=== PATIENT | female | born 1955 | race Caucasian/White ===

== ENCOUNTER 2017-02-23 19:54 | Inpatient (IN) | payer MEDICAID ==
[~2017-02-23] VITALS: Ht 172.7 cm; Wt 135.6 kg
[~2017-02-23 19:54] MED LIST: HYDR-4039 PO; PARO20TA51 PO; RIVA15TA PO
[2017-02-23 19:55] VITALS: BP_SYST 136
[2017-02-23] MEDS ORDERED: NACL 0.9% 1,000 ML IV ONE (19:57)
[2017-02-23] MEDS ORDERED: ASPIRIN 81 MG TAB.CHEW PO ONE (20:00)
[2017-02-23 20:15] LABS: BASOPHILS # (AUTO) 0.1 K/uL (0.0-0.2); BASOPHILS % (AUTO) 0.4 % (0.0-2.0); EOSINOPHILS # (AUTO) 0.3 K/uL (0.0-0.4); EOSINOPHILS % (AUTO) 2.3 % (0.0-4.0); HEMATOCRIT 42.7 % (36-48); HEMOGLOBIN 14.1 g/dL (12.0-16.0); LYMPHOCYTES # (AUTO) 3.2 K/uL (1.0-5.5); LYMPHOCYTES % (AUTO) 25.2 % (20.5-51.5); MEAN CORPUSCULAR HEMOGLOBIN 29 pg (27-31); MEAN CORPUSCULAR HGB CONC 33 % (32-36); MEAN CORPUSCULAR VOLUME 88 fL (79.0-98.0); MONOCYTES # (AUTO) 0.6 K/uL (0.0-1.0); MONOCYTES % (AUTO) 5.1 % (1.7-9.3); NEUTROPHILS # (AUTO) 8.5 K/uL (1.8-7.7); PLATELET COUNT (AUTO) 299 K/uL (130-430); RED BLOOD CELL COUNT(AUTO) 4.84 MIL/uL (4.2-6.2); RED CELL DISTRIBUTION WIDTH 13.5 % (9.0-15.0); WHITE BLOOD COUNT (AUTO) 12.7 K/uL (4.8-10.8)
[2017-02-23] MEDS ORDERED: KETOROLAC TROMETHAMINE 30 MG VIAL IVP ONE (20:15)
[2017-02-23] MEDS ORDERED: ISOS30TA6 PO ×2 (20:20→20:56)
[2017-02-23] MEDS ORDERED: ROPI0.252 PO ×2 (20:20→20:56)
[2017-02-23] MEDS ORDERED: VALS80TA2 PO (20:20)
[2017-02-23] MEDS ORDERED: ROPI0.5T PO (20:20)
[2017-02-23] MEDS ORDERED: AMIT10TA6 PO (20:21)
[2017-02-23 20:26] LABS: PROTHROMBIN TIME 10.6 SECS (9.5-12.5)
[2017-02-23] MEDS ORDERED: DILTIAZEM HCL 25 MG/5 ML VIAL IVP ONE (20:30)
[2017-02-23 20:31] LABS: CALCIUM 8.8 mg/dL (8.4-11.0); CREATININE 1.13 mg/dL (0.55-1.30); POTASSIUM 4.1 mmol/L (3.5-5.1)
[2017-02-23 20:48] LABS: ALBUMIN 3.3 g/dL (3.4-4.8); TOTAL BILIRUBIN 0.2 mg/dL (0.0-1.0); TOTAL PROTEIN, SERUM 6.7 g/dL (6.4-8.3)
[2017-02-23] MEDS ORDERED: VITA1TAB25 PO (20:56)
[2017-02-23] MEDS ORDERED: ENOXAPARIN SODIUM 120 MG/0.8 ML SYRINGE SUBCUT ONE (21:15)
[2017-02-23] MEDS ORDERED: roPINIRole HCL 0.25 MG ( REQUIP )TABLET PO PRN (21:30)
[2017-02-23] MEDS ORDERED: DILTIAZEM HCL 25 MG/5 ML VIAL IVP PRN (21:45)
[2017-02-23 21:50] VITALS: BP_SYST 102
[2017-02-23 22:00] VITALS: BP_SYST 154
[2017-02-23] MEDS ORDERED: APIXABAN 2.5 MG TABLET PO SCH (22:00)
[2017-02-23] MEDS: LR 1,000 ML IV SCH (22:17)
[2017-02-23] MEDS: DILTIAZEM HCL 60 MG TABLET PO SCH (22:34)
[2017-02-24] MEDS: DILTIAZEM HCL 60 MG TABLET PO SCH (06:00)
[2017-02-24 06:24] VITALS: BP_SYST 137
[2017-02-24 06:58] LABS: BASOPHILS # (AUTO) 0.1 K/uL (0.0-0.2); BASOPHILS % (AUTO) 0.6 % (0.0-2.0); EOSINOPHILS # (AUTO) 0.3 K/uL (0.0-0.4); EOSINOPHILS % (AUTO) 2.6 % (0.0-4.0); HEMATOCRIT 40.8 % (36-48); HEMOGLOBIN 13.5 g/dL (12.0-16.0); LYMPHOCYTES # (AUTO) 3.2 K/uL (1.0-5.5); LYMPHOCYTES % (AUTO) 32.7 % (20.5-51.5); MEAN CORPUSCULAR HEMOGLOBIN 29 pg (27-31); MEAN CORPUSCULAR HGB CONC 33 % (32-36); MEAN CORPUSCULAR VOLUME 88 fL (79.0-98.0); MONOCYTES # (AUTO) 0.6 K/uL (0.0-1.0); MONOCYTES % (AUTO) 6.2 % (1.7-9.3); NEUTROPHILS # (AUTO) 5.6 K/uL (1.8-7.7); NEUTROPHILS % (AUTO) 57.9 % (40.0-70.0); PLATELET COUNT (AUTO) 277 K/uL (130-430); RED BLOOD CELL COUNT(AUTO) 4.65 MIL/uL (4.2-6.2); RED CELL DISTRIBUTION WIDTH 13.5 % (9.0-15.0); WHITE BLOOD COUNT (AUTO) 9.8 K/uL (4.8-10.8)
[2017-02-24 07:51] LABS: CALCIUM 8.6 mg/dL (8.4-11.0); CREATININE 0.94 mg/dL (0.55-1.30); POTASSIUM 3.8 mmol/L (3.5-5.1)
[2017-02-24 07:57] VITALS: BP_SYST 124
[2017-02-24 08:14] LABS: ALBUMIN 3.3 g/dL (3.4-4.8); THYROID STIMULATING HORMONE 1.52 uIu/mL (0.36-3.74); TOTAL BILIRUBIN 0.2 mg/dL (0.0-1.0); TOTAL PROTEIN, SERUM 6.8 g/dL (6.4-8.3)
[2017-02-24] MEDS: VITAMIN B COMPLEX WITH C TAB/CAP PO SCH (08:55)
[2017-02-24] MEDS: ASPIRIN 81 MG TABLET(ECOTRIN) PO SCH (08:55)
[2017-02-24] MEDS ORDERED: VALSARTAN 80 MG TABLET (DIOVAN) PO SCH (09:00)
[2017-02-24] MEDS ORDERED: APIXABAN 2.5 MG TABLET PO SCH (09:00)
[2017-02-24] MEDS ORDERED: ISOSORBIDE MONONITRATE 30 MG TAB.ER.24H PO SCH ×2 (09:00)
[2017-02-24] MEDS ORDERED: DILTIAZEM HCL 180 MG CAP.SR.24H PO ONE (11:45)
[2017-02-24] MEDS: LR 1,000 ML IV SCH (12:09)
[2017-02-24 12:32] VITALS: BP_SYST 127
[2017-02-24 16:40] VITALS: BP_SYST 151
[2017-02-24 19:00] VITALS: BP_SYST 169
[2017-02-24 20:00] VITALS: BP_SYST 169
[2017-02-24] MEDS ORDERED: PARoxetine HCL 20 MG TABLET PO SCH (21:00)
[2017-02-24] MEDS ORDERED: AMITRIPTYLINE HCL 10 MG TABLET (ELAVIL) PO SCH (21:00)
[2017-02-24] MEDS ORDERED: ENOXAPARIN SODIUM 40 MG/0.4 ML SYRINGE SUBCUT SCH (21:00)
[2017-02-24] MEDS ORDERED: roPINIRole HCL 0.25 MG ( REQUIP )TABLET PO SCH (21:00)
[2017-02-24] MEDS: APIXABAN 2.5 MG TABLET PO SCH (21:42)
[2017-02-24] MEDS ORDERED: cloNIDine HCL 0.1 MG TABLET PO PRN (23:30)
[2017-02-24] MEDS ORDERED: DIPHENHYDRAMINE HCL 25 MG CAPSULE PO PRN (23:30)
[2017-02-25] VITALS (7 sets, daily range): BP systolic 120–172
[2017-02-25] MEDS ORDERED: DIPHENHYDRAMINE INJ 50 MG/ML VIAL IVP PRN (00:45)
[2017-02-25] MEDS: LR 1,000 ML IV SCH ×2 (02:36→05:05)
[2017-02-25] MEDS ORDERED: DILTIAZEM HCL 180 MG CAP.SR.24H PO SCH (09:00)
[2017-02-25] MEDS: APIXABAN 2.5 MG TABLET PO SCH (09:21)
[2017-02-25] MEDS: ASPIRIN 81 MG TABLET(ECOTRIN) PO SCH (09:21)
[2017-02-25] MEDS: VITAMIN B COMPLEX WITH C TAB/CAP PO SCH (09:21)
[2017-02-25] MEDS ORDERED: hydrALAZINE HCL 25 MG TABLET PO ONE (09:45)
[2017-02-25] MEDS ORDERED: hydrALAZINE HCL 25 MG TABLET PO SCH (21:00)
== END 2017-02-25 13:25 | disposition home or self-care (01) | DRG 201 ==
LOC: SED 19:54 → STU 21:14
PROVIDERS: ADMIT Internal Medicine; ATTEND Internal Medicine
DX: I48.0 Paroxysmal atrial fibrillation (principal); D68.59 Other primary thrombophilia; Z68.42 Body mass index [BMI] 45.0-49.9, adult; E66.01 Morbid (severe) obesity due to excess calories; E44.1 Mild protein-calorie malnutrition; I10 Essential (primary) hypertension; R74.8 Abnormal levels of other serum enzymes; G47.33 Obstructive sleep apnea (adult) (pediatric); M19.90 Unspecified osteoarthritis, unspecified site; R73.9 Hyperglycemia, unspecified; Z80.52 Family history of malignant neoplasm of bladder; Z90.49 Acquired absence of other specified parts of digestive tract; Z90.710 Acquired absence of both cervix and uterus; Z79.899 Other long term (current) drug therapy
CPT/HCPCS: 36415; 71010; 80053; 83036; 83735-TC; 83880; 84439; 84443-TC; 84484; 85025; 85610-TC; 85730-TC; 93005; 96372; 96374; 96375; 99285; J1200; J1650; J1885; J3490; J7030; J7120; Q0163

== ENCOUNTER 2017-08-08 16:28 | Emergency (ER) | payer MEDICAID ==
[~2017-08-08] VITALS: Ht 172.7 cm; Wt 131.5 kg
[2017-08-08 16:28] VITALS: BP_SYST 146
[~2017-08-08 16:28] MED LIST changes: +AMIT10TA6 PO; +ISOS30TA6 PO; -RIVA15TA PO; +ROPI0.252 PO; +ROPI0.5T PO; +VALS80TA2 PO; +VITA1TAB25 PO
--- NOTE | 2017-08-08 16:30 | NUR ---
Pt brought to bed 3
--- NOTE | 2017-08-08 16:43 | NUR ---
Pt complains of dizziness and generalized weakness for the past week, pt states has difficulty catching her breath. Pt denies chest pain, n/v or fever. Pt states feels "like phelgm is stuck in her lungs". Pt has 96% on room air, is CTA in bilateral lungs. Pt drove self to ER and no noted difficulty while ambulating into the ER. No other injuries/complaints per pt or noted.
--- NOTE | 2017-08-08 16:45 | NUR ---
ER at bedside examining patient.
--- NOTE | 2017-08-08 17:30 | NUR ---
Pt is resting in bed comfortably with no noted distress or discomfort.
[2017-08-08 17:36] LABS: BASOPHILS # (AUTO) 0.1 K/uL (0.0-0.2); BASOPHILS % (AUTO) 0.5 % (0.0-2.0); EOSINOPHILS # (AUTO) 0.2 K/uL (0.0-0.4); EOSINOPHILS % (AUTO) 1.8 % (0.0-4.0); HEMATOCRIT 41.4 % (36-48); HEMOGLOBIN 13.5 g/dL (12.0-16.0); LYMPHOCYTES # (AUTO) 3.1 K/uL (1.0-5.5); LYMPHOCYTES % (AUTO) 23.3 % (20.5-51.5); MEAN CORPUSCULAR HEMOGLOBIN 29 pg (27-31); MEAN CORPUSCULAR HGB CONC 33 % (32-36); MEAN CORPUSCULAR VOLUME 89 fL (79.0-98.0); MONOCYTES # (AUTO) 0.7 K/uL (0.0-1.0); MONOCYTES % (AUTO) 5.1 % (1.7-9.3); NEUTROPHILS # (AUTO) 9.3 K/uL (1.8-7.7); NEUTROPHILS % (AUTO) 69.3 % (40.0-70.0); PLATELET COUNT (AUTO) 325 K/uL (130-430); RED BLOOD CELL COUNT(AUTO) 4.66 MIL/uL (4.2-6.2); RED CELL DISTRIBUTION WIDTH 13.6 % (9.0-15.0); WHITE BLOOD COUNT (AUTO) 13.4 K/uL (4.8-10.8)
[2017-08-08 18:10] LABS: ALBUMIN 3.2 g/dL (3.4-4.8); CALCIUM 9.2 mg/dL (8.4-11.0); CREATININE 0.71 mg/dL (0.55-1.30); POTASSIUM 4.5 mmol/L (3.5-5.1); TOTAL BILIRUBIN 0.3 mg/dL (0.0-1.0)
--- NOTE | 2017-08-08 18:30 | NUR ---
Pt has no complaints of pain but is cold and asked for a blanket, which was given
[2017-08-08 19:30] VITALS: BP_SYST 111
--- NOTE | 2017-08-08 19:31 | NUR ---
Patient given written and verbal discharge instructions and verbalizes understanding. ER MD discussed with patient the results and treatment provided. Patient in stable condition. ID arm band removed. Patient educated on pain management and to follow up with PMD. Pain Scale 0/10. Opportunity for questions provided and answered.
== END 2017-08-08 19:30 | disposition home or self-care (01) ==
LOC: SED 16:28
DX: J40 Bronchitis, not specified as acute or chronic (principal); K21.9 Gastro-esophageal reflux disease without esophagitis; I10 Essential (primary) hypertension; I48.91 Unspecified atrial fibrillation; E66.01 Morbid (severe) obesity due to excess calories; Z68.41 Body mass index [BMI] 40.0-44.9, adult; Z90.49 Acquired absence of other specified parts of digestive tract; Z90.89 Acquired absence of other organs; Z79.899 Other long term (current) drug therapy; Z88.2 Allergy status to sulfonamides; Z91.040 Latex allergy status
CPT/HCPCS: 36415; 71010; 80053; 83690-TC; 83880; 84484; 85025; 93005; 99285

== ENCOUNTER 2018-01-10 04:24 | Emergency (ER) | payer OTHER, MEDICAID ==
[~2018-01-10] VITALS: Ht 172.7 cm; Wt 136.1 kg
[~2018-01-10 04:24] MED LIST changes: +ALBMDI INH; +FLUT16SP16 NS; +FLUT1DIS INH; +LEVO500T20 PO; +METH4TAB3 PO; -ROPI0.5T PO
[2018-01-10 04:34] VITALS: BP_SYST 139
[2018-01-10] MEDS ORDERED: BUPIVACAINE /PF 0.25% 30 ML VIAL INJ ONE (05:00)
[2018-01-10] MEDS ORDERED: LIDOCAINE 1% 10 MG/ML, 20 ML MDV INJ ONE (05:00)
[2018-01-10 05:28] VITALS: BP_SYST 133
[2018-01-13] MEDS ORDERED: HYDR-1189 PO ×2 (18:53)
[2018-01-13] MEDS ORDERED: ALPR0.5T96 PO (18:53)
[2018-01-13] MEDS ORDERED: DILT180C54 PO (18:53)
== END 2018-01-10 05:28 | disposition home or self-care (01) ==
LOC: SED 04:24
DX: G89.29 Other chronic pain (principal); M25.511 Pain in right shoulder; J44.9 Chronic obstructive pulmonary disease, unspecified; K21.9 Gastro-esophageal reflux disease without esophagitis; I48.91 Unspecified atrial fibrillation; I10 Essential (primary) hypertension; F32.9 Major depressive disorder, single episode, unspecified; Z88.2 Allergy status to sulfonamides; Z91.040 Latex allergy status; Z79.899 Other long term (current) drug therapy
CPT/HCPCS: 20552; 99284; J2001; J3490

== ENCOUNTER 2019-04-19 10:21 | Emergency (ER) | payer MEDICAID, OTHER ==
[~2019-04-19] VITALS: Ht 172.7 cm; Wt 131.1 kg
[~2019-04-19 10:21] MED LIST changes: +ALPR0.5T PO; -AMIT10TA6 PO; +DILT180C54 PO; +HYDR-1189 PO; -LEVO500T20 PO; -METH4TAB3 PO; +PARO-63 PO; -PARO20TA51 PO; -ROPI0.252 PO
[2019-04-19 10:24] VITALS: BP_SYST 144
[2019-04-19] MEDS ORDERED: NA PHOS,M-B/NA PHOS,DI-BA 118 ML (FLEET ENEMA) RC ONE (10:45)
[2019-04-19 11:19] VITALS: BP_SYST 135
== END 2019-04-19 11:21 | disposition home or self-care (01) ==
LOC: SED 10:21
DX: K59.00 Constipation, unspecified (principal); K62.89 Other specified diseases of anus and rectum; J45.909 Unspecified asthma, uncomplicated; Z79.899 Other long term (current) drug therapy; Z88.2 Allergy status to sulfonamides; Z91.040 Latex allergy status
CPT/HCPCS: 99283; 99284

== ENCOUNTER 2019-04-24 05:34 | Emergency (ER) | payer OTHER ==
[~2019-04-24] VITALS: Ht 172.7 cm; Wt 131.1 kg
[2019-04-24 05:34] VITALS: BP_SYST 137
--- NOTE | 2019-04-24 05:35 | NUR ---
Placed in room 7. Placed on laboratory monitor, blood pressure machine and pulse oximeter. To gown for exam. Side rails up.
--- NOTE | 2019-04-24 05:40 | NUR ---
Pt brought into ED by friend w/ c/o of active bleed from Sx site. Pt woke up this moring around 0400 and noticed bleeding from her hernia site repair. She had Sx one week ago, and has had not any complications after Sx but noticed the bleeding today. Pt has Hx of Dm, HTN, and A-fib, and ventral hernia. No other Sx noted. Pt not c/o of any pain at this time, no N/V, no dizziness, no fever, chills noted. VSS. Will continue to monitor.
--- NOTE | 2019-04-24 05:45 | NUR ---
ER Dr. Nathan at bedside examining patient.
--- NOTE | 2019-04-24 05:50 | NUR ---
# 20 gauge angiocath placed to RT AC. Use of asceptic technique. Opsite placed over site. Blood return noted. Blood for lab drawn from site. Flushed with 10 cc of normal saline. No evidence of infiltration noted. Patient tolerated well.
[2019-04-24] MEDS ORDERED: NACL 0.9% 1,000 ML IV ONE (06:00)
[2019-04-24] MEDS ORDERED: PIPERACILLIN/TAZO 3.375 GM in NS 50 ML IV ONE (06:00)
[2019-04-24] MEDS ORDERED: APIX5TAB PO (06:03)
[2019-04-24] MEDS ORDERED: PIPERACILLIN/TAZOBACTAM 3.375 GM/VIAL (ZOSYN) IV ONE (06:20)
[2019-04-24 06:21] LABS: BASOPHILS # (AUTO) 0.1 K/uL (0.0-0.2); BASOPHILS % (AUTO) 0.8 % (0.0-2.0); EOSINOPHILS # (AUTO) 0.4 K/uL (0.0-0.4); EOSINOPHILS % (AUTO) 3.2 % (0.0-4.0); HEMATOCRIT 41.8 % (36-48); HEMOGLOBIN 13.8 g/dL (12.0-16.0); LYMPHOCYTES # (AUTO) 2.9 K/uL (1.0-5.5); LYMPHOCYTES % (AUTO) 22.5 % (20.5-51.5); MEAN CORPUSCULAR HEMOGLOBIN 30 pg (27-31); MEAN CORPUSCULAR HGB CONC 33 % (32-36); MEAN CORPUSCULAR VOLUME 92 fL (79.0-98.0); MONOCYTES # (AUTO) 0.8 K/uL (0.0-1.0); MONOCYTES % (AUTO) 6.1 % (1.7-9.3); NEUTROPHILS # (AUTO) 8.6 K/uL (1.8-7.7); NEUTROPHILS % (AUTO) 67.4 % (40.0-70.0); PLATELET COUNT (AUTO) 312 K/uL (130-430); RED BLOOD CELL COUNT(AUTO) 4.57 MIL/uL (4.2-6.2); RED CELL DISTRIBUTION WIDTH 14.2 % (9.0-15.0); WHITE BLOOD COUNT (AUTO) 12.7 K/uL (4.8-10.8)
[2019-04-24] MEDS ORDERED: TOPXL100 PO (06:32)
[2019-04-24] MEDS ORDERED: FURO-150 PO (06:32)
[2019-04-24 06:34] LABS: CALCIUM 9.1 mg/dL (8.4-11.0); CREATININE 0.89 mg/dL (0.55-1.30); POTASSIUM 3.9 mmol/L (3.5-5.1)
[2019-04-24] MEDS ORDERED: LOSARTAN PO (06:34)
--- NOTE | 2019-04-24 06:35 | NUR ---
Medication reconciliation completed with information provided by patient. Any prior medication reconciliation on file was reviewed and corrected.
[2019-04-24 06:39] LABS: ALBUMIN 3.3 g/dL (3.4-4.8); TOTAL BILIRUBIN 0.9 mg/dL (0.0-1.0)
[2019-04-24 06:43] LABS: BILIRUBIN,URINE NEGATIVE (NEGATIVE); BLOOD, URINE 2+ (NEGATIVE); CLARITY/URINE CLEAR (CLEAR); COLOR,URINE YELLOW (YELLOW); GLUCOSE,URINE NEGATIVE (NEGATIVE); KETONES,URINE NEGATIVE (NEGATIVE); LEUKOCYTE ESTERASE ,URINE NEGATIVE (NEGATIVE); NITRITE, URINE NEGATIVE (NEGATIVE); PH,URINE 5.5 (5.0-8.0); PROTEIN URINE 1+ (NEGATIVE); UROBILINOGEN,URINE 0.2 (0.2-1.0)
[2019-04-24 06:48] LABS: INR 1.1 (0.8-1.2); PROTHROMBIN TIME 11.1 SECS (9.5-12.5)
--- NOTE | 2019-04-24 07:00 | NUR ---
Pt w/ radiology for CT scan.
--- NOTE | 2019-04-24 07:05 | NUR ---
Report to oncoming RN via SBAR approach.
[2019-04-24] MEDS ORDERED: IOHEXOL 100 ML IV ONE (07:17)
--- NOTE | 2019-04-24 07:25 | NUR ---
Returned from radiology, back to [place] [facility] [facility].
[2019-04-24 07:27] LABS: BACTERIA,URINE FEW /HPF (None Seen); WBC,URINE 0-3 /HPF (0-3)
--- NOTE | 2019-04-24 09:59 | NUR ---
Patient given written and verbal discharge instructions and verbalizes understanding. ER MD discussed with patient the results and treatment provided. Patient in stable condition. ID arm band removed. IV catheter removed intact and dressing applied, no active bleeding. Patient provided a copy of labs and CD with imaging. Patient educated on pain management and to follow up with PMD. Pain Scale 0/10. Opportunity for questions provided and answered. Medication side effect fact sheet provided.
[2019-04-24 10:00] VITALS: BP_SYST 118
== END 2019-04-24 10:00 | disposition home or self-care (01) ==
LOC: SED 05:34
DX: K91.840 Postprocedural hemorrhage of a digestive system organ or structure following a digestive system procedure (principal); I48.91 Unspecified atrial fibrillation; K21.9 Gastro-esophageal reflux disease without esophagitis; I10 Essential (primary) hypertension; J44.9 Chronic obstructive pulmonary disease, unspecified; F32.9 Major depressive disorder, single episode, unspecified; F41.9 Anxiety disorder, unspecified; Z88.2 Allergy status to sulfonamides; Z91.040 Latex allergy status; Z79.899 Other long term (current) drug therapy
CPT/HCPCS: 36415; 71045; 74177; 80053; 81000; 83605; 84484; 85025; 85610; 85730; 87040; 87086; 93005; 96365; 99284; J2543; J7030; Q9967

== ENCOUNTER 2020-02-22 13:37 | Emergency (ER) | payer OTHER ==
[~2020-02-22] VITALS: Ht 157.5 cm; Wt 136.1 kg
[~2020-02-22 13:37] MED LIST changes: -ALPR0.5T PO; +APIX5TAB PO; +FURO-150 PO; -HYDR-4039 PO; +LOSARTAN PO; +TOPXL100 PO; -VALS80TA2 PO
[2020-02-22 13:38] VITALS: BP_SYST 154
--- NOTE | 2020-02-22 13:38 | NUR ---
Placed in room 8. Placed on phototypesetting equipment monitor, blood pressure machine and pulse oximeter. To gown for exam. Side rails up.
--- NOTE | 2020-02-22 13:50 | NUR ---
Patient is A/O x4. She is complaining of right sided pain under the right breast. She states it has been getting progressively worse since having a chiropractor adjustment 3 days ago, she is also complaining of SOB and is diaphoretic. Addendum: 02/22/20 at 1402 by [email or web address] The pain is under left breast, not right breast.
--- NOTE | 2020-02-22 14:00 | NUR ---
ER Dr. Patel at bedside examining patient.
[2020-02-22 14:31] LABS: BASOPHILS # (AUTO) 0.1 K/uL (0.0-0.2); BASOPHILS % (AUTO) 0.5 % (0.0-2.0); EOSINOPHILS # (AUTO) 0.3 K/uL (0.0-0.4); HEMATOCRIT 46.9 % (36-48); HEMOGLOBIN 15.3 g/dL (12.0-16.0); LYMPHOCYTES # (AUTO) 3.6 K/uL (1.0-5.5); LYMPHOCYTES % (AUTO) 25.3 % (20.5-51.5); MEAN CORPUSCULAR HEMOGLOBIN 29 pg (27-31); MEAN CORPUSCULAR HGB CONC 33 % (32-36); MEAN CORPUSCULAR VOLUME 90 fL (79.0-98.0); MONOCYTES % (AUTO) 7.3 % (1.7-9.3); NEUTROPHILS # (AUTO) 9.2 K/uL (1.8-7.7); NEUTROPHILS % (AUTO) 64.9 % (40.0-70.0); PLATELET COUNT (AUTO) 315 K/uL (130-430); RED BLOOD CELL COUNT(AUTO) 5.23 MIL/uL (4.2-6.2); RED CELL DISTRIBUTION WIDTH 14.7 % (9.0-15.0); WHITE BLOOD COUNT (AUTO) 14.2 K/uL (4.8-10.8)
[2020-02-22 14:35] LABS: INR 1.1 (0.8-1.2); PROTHROMBIN TIME 10.9 SECS (9.5-12.5)
[2020-02-22 14:47] LABS: CALCIUM 9.6 mg/dL (8.4-11.0); CREATININE 0.75 mg/dL (0.55-1.30); POTASSIUM 4.2 mmol/L (3.5-5.1)
[2020-02-22 14:52] LABS: ALBUMIN 3.7 g/dL (3.4-4.8); TOTAL BILIRUBIN 0.5 mg/dL (0.0-1.0)
[2020-02-22] MEDS ORDERED: MORPHINE 4 MG/ML INJ. SYRINGE IVP ONE (15:15)
[2020-02-22] MEDS ORDERED: DIPHENHYDRAMINE INJ 50 MG/ML VIAL IVP ONE (15:15)
[2020-02-22 15:16] LABS: BILIRUBIN,URINE NEGATIVE (NEGATIVE); BLOOD, URINE NEGATIVE (NEGATIVE); CLARITY/URINE CLEAR (CLEAR); COLOR,URINE YELLOW (YELLOW); GLUCOSE,URINE NEGATIVE (NEGATIVE); KETONES,URINE NEGATIVE (NEGATIVE); LEUKOCYTE ESTERASE ,URINE NEGATIVE (NEGATIVE); NITRITE, URINE NEGATIVE (NEGATIVE); PROTEIN URINE 1+ (NEGATIVE); UROBILINOGEN,URINE 0.2 (0.2-1.0)
[2020-02-22 15:20] LABS: BACTERIA,URINE RARE /HPF (None Seen); RBC,URINE 0-3 /HPF (0-3); WBC,URINE 0-3 /HPF (0-3)
[2020-02-22 16:30] VITALS: BP_SYST 148
--- NOTE | 2020-02-22 16:30 | NUR ---
Patient given written and verbal discharge instructions and verbalizes understanding. ER MD discussed with patient the results and treatment provided. Patient in stable condition. ID arm band removed. IV catheter removed intact and dressing applied, no active bleeding. Rx of tramadol, robaxin given. Patient educated on pain management and to follow up with PMD. Pain Scale 0/10. Opportunity for questions provided and answered. Medication side effect fact sheet provided.
== END 2020-02-22 16:30 | disposition home or self-care (01) ==
LOC: SED 13:37
DX: M62.838 Other muscle spasm (principal); R07.89 Other chest pain; I11.0 Hypertensive heart disease with heart failure; I50.9 Heart failure, unspecified; K21.9 Gastro-esophageal reflux disease without esophagitis; J44.9 Chronic obstructive pulmonary disease, unspecified; Z79.899 Other long term (current) drug therapy; Z88.2 Allergy status to sulfonamides; Z91.040 Latex allergy status
CPT/HCPCS: 36415; 71045; 71100; 76642; 80053; 81000; 83605; 83880; 84484; 85025; 85610; 87040; 93005; 96374; 96375; 99285; J1200; J2270

== ENCOUNTER 2022-02-12 04:33 | Emergency (ER) | payer OTHER ==
[~2022-02-12] VITALS: Ht 172.7 cm; Wt 136.1 kg
[~2022-02-12 04:33] MED LIST changes: -HYDR-1189 PO; +HYDR-3919 PO; -ISOS30TA6 PO; +ISOS30TA85 PO
[2022-02-12 04:40] VITALS: BP_SYST 130
[2022-02-12] MEDS ORDERED: KETOROLAC TROMETHAMINE 30 MG VIAL IVP ONE (05:30)
[2022-02-12 06:43] LABS: BASOPHILS # (AUTO) 0.1 K/uL (0.0-0.2); BASOPHILS % (AUTO) 0.9 % (0.0-2.0); EOSINOPHILS # (AUTO) 0.6 K/uL (0.0-0.4); EOSINOPHILS % (AUTO) 5.5 % (0.0-4.0); HEMATOCRIT 44.9 % (36-48); HEMOGLOBIN 15.3 g/dL (12.0-16.0); LYMPHOCYTES # (AUTO) 2.4 K/uL (1.0-5.5); MEAN CORPUSCULAR HEMOGLOBIN 30 pg (27-31); MEAN CORPUSCULAR HGB CONC 34 % (32-36); MEAN CORPUSCULAR VOLUME 88 fL (79.0-98.0); MONOCYTES # (AUTO) 0.8 K/uL (0.0-1.0); MONOCYTES % (AUTO) 7.8 % (1.7-9.3); NEUTROPHILS # (AUTO) 6.6 K/uL (1.8-7.7); NEUTROPHILS % (AUTO) 62.8 % (40.0-70.0); PLATELET COUNT (AUTO) 243 K/uL (130-430); RED CELL DISTRIBUTION WIDTH 14.4 % (9.0-15.0); WHITE BLOOD COUNT (AUTO) 10.5 K/uL (4.8-10.8)
[2022-02-12 07:10] LABS: CALCIUM 8.7 mg/dL (8.4-11.0); CREATININE 0.91 mg/dL (0.55-1.30); POTASSIUM 3.3 mmol/L (3.5-5.1)
[2022-02-12 07:15] LABS: ALBUMIN 3.4 g/dL (3.4-4.8); TOTAL BILIRUBIN 0.7 mg/dL (0.0-1.0)
[2022-02-12 07:22] LABS: BILIRUBIN,URINE NEGATIVE (NEGATIVE); BLOOD, URINE NEGATIVE (NEGATIVE); CLARITY/URINE CLEAR (CLEAR); COLOR,URINE YELLOW (YELLOW); GLUCOSE,URINE NEGATIVE (NEGATIVE); KETONES,URINE NEGATIVE (NEGATIVE); LEUKOCYTE ESTERASE ,URINE NEGATIVE (NEGATIVE); NITRITE, URINE NEGATIVE (NEGATIVE); PROTEIN URINE 2+ (NEGATIVE); UROBILINOGEN,URINE 0.2 (0.2-1.0)
[2022-02-12 07:46] LABS: BACTERIA,URINE None Seen /HPF (None Seen); CALCIUM OXALATE CRYSTALS,UR 0-10 /HPF (None Seen); RBC,URINE 0-3 /HPF (0-3); WBC,URINE 0-3 /HPF (0-3)
[2022-02-12 07:48] LABS: HYALINE CASTS, URINE 0-10 /LPF (None Seen)
[2022-02-12] MEDS ORDERED: ONDANSETRON HCL 4 MG/2 ML VIAL IVP ONE (08:15)
[2022-02-12] MEDS ORDERED: MORPHINE 4 MG INJ. 4 MG/ML VIAL IVP ONE (08:15)
[2022-02-12 08:56] VITALS: BP_SYST 147
[2022-02-12] MEDS ORDERED: IBUP-1969 PO (09:08)
[2022-02-12] MEDS ORDERED: HYDR-3917 PO (09:18)
== END 2022-02-12 10:30 | disposition home or self-care (01) ==
LOC: SED 04:33
DX: K91.872 Postprocedural seroma of a digestive system organ or structure following a digestive system procedure (principal); I11.0 Hypertensive heart disease with heart failure; I50.9 Heart failure, unspecified; J45.909 Unspecified asthma, uncomplicated; Z88.2 Allergy status to sulfonamides; Z91.040 Latex allergy status; Z79.899 Other long term (current) drug therapy
CPT/HCPCS: 36415; 74176; 76376; 80053; 81000; 81003; 85025; 96374; 96375; 99284; J1885; J2270; J2405

== ENCOUNTER 2022-07-13 16:17 | Emergency (ER) | payer OTHER ==
[~2022-07-13] VITALS: Ht 172.7 cm; Wt 131.5 kg
[~2022-07-13 16:17] MED LIST changes: +HYDR-3917 PO; +IBUP-1969 PO
[2022-07-13 16:27] VITALS: BP_SYST 127
[2022-07-13 17:33] LABS: BASOPHILS # (AUTO) 0.1 K/uL (0.0-0.2); EOSINOPHILS # (AUTO) 0.3 K/uL (0.0-0.4); EOSINOPHILS % (AUTO) 2.9 % (0.0-4.0); HEMATOCRIT 41.9 % (36-48); HEMOGLOBIN 14.2 g/dL (12.0-16.0); LYMPHOCYTES # (AUTO) 2.5 K/uL (1.0-5.5); LYMPHOCYTES % (AUTO) 24.8 % (20.5-51.5); MEAN CORPUSCULAR HEMOGLOBIN 31 pg (27-31); MEAN CORPUSCULAR HGB CONC 34 % (32-36); MEAN CORPUSCULAR VOLUME 90 fL (79.0-98.0); MONOCYTES # (AUTO) 0.7 K/uL (0.0-1.0); MONOCYTES % (AUTO) 7.4 % (1.7-9.3); NEUTROPHILS # (AUTO) 6.4 K/uL (1.8-7.7); NEUTROPHILS % (AUTO) 63.9 % (40.0-70.0); PLATELET COUNT (AUTO) 217 K/uL (130-430); RED BLOOD CELL COUNT(AUTO) 4.65 MIL/uL (4.2-6.2); RED CELL DISTRIBUTION WIDTH 14.3 % (9.0-15.0)
[2022-07-13 18:29] LABS: CALCIUM 9.1 mg/dL (8.4-11.0); CREATININE 0.81 mg/dL (0.55-1.30); POTASSIUM 4.1 mmol/L (3.5-5.1)
[2022-07-13 18:33] LABS: ALBUMIN 3.5 g/dL (3.4-4.8); TOTAL BILIRUBIN 0.2 mg/dL (0.0-1.0)
--- NOTE | 2022-07-13 18:38 | NUR ---
Placed in room 2 . Placed on cardiac monitor technician, blood pressure machine and pulse oximeter. To gown for exam. Side rails up. Report given to MIGUEL FRANCOIS.
[2022-07-13 18:44] LABS: BILIRUBIN,URINE NEGATIVE (NEGATIVE); BLOOD, URINE NEGATIVE (NEGATIVE); CLARITY/URINE CLEAR (CLEAR); COLOR,URINE YELLOW (YELLOW); GLUCOSE,URINE NEGATIVE (NEGATIVE); KETONES,URINE NEGATIVE (NEGATIVE); LEUKOCYTE ESTERASE ,URINE NEGATIVE (NEGATIVE); NITRITE, URINE NEGATIVE (NEGATIVE); PROTEIN URINE NEGATIVE (NEGATIVE); UROBILINOGEN,URINE 0.2 (0.2-1.0)
[2022-07-13] MEDS ORDERED: DICYCLOMINE HCL 10 MG CAPSULE PO ONE (19:00)
[2022-07-13] MEDS ORDERED: KETOROLAC TROMETHAMINE 30 MG VIAL IM ONE (19:00)
[2022-07-13] MEDS ORDERED: DICYCLOMINE HCL 10 MG/5 ML SOLUTION ONE (19:19)
[2022-07-13] MEDS ORDERED: DICYCLOMINE HCL 10 MG/5 ML SOLUTION PO ONE (19:30)
[2022-07-13] MEDS ORDERED: LOPE2CAP PO (19:56)
[2022-07-13] MEDS ORDERED: DICY10CA13 PO (19:56)
[2022-07-13] MEDS ORDERED: ACET-2634 PO (19:56)
[2022-07-13 20:03] VITALS: BP_SYST 127
--- NOTE | 2022-07-13 20:03 | NUR ---
Patient given written and verbal discharge instructions and verbalizes understanding. ER MD discussed with patient the results and treatment provided. Patient in stable condition. ID arm band removed. Rx of given. Patient educated on pain management and to follow up with PMD. Pain Scale 0/10. Opportunity for questions provided and answered. Medication side effect fact sheet provided.
== END 2022-07-13 20:03 | disposition home or self-care (01) ==
LOC: SED 16:17
DX: A08.4 Viral intestinal infection, unspecified (principal); R10.84 Generalized abdominal pain; E27.9 Disorder of adrenal gland, unspecified; K21.9 Gastro-esophageal reflux disease without esophagitis; J44.9 Chronic obstructive pulmonary disease, unspecified; I10 Essential (primary) hypertension; Z88.2 Allergy status to sulfonamides; Z91.040 Latex allergy status; Z79.899 Other long term (current) drug therapy
CPT/HCPCS: 99284; 74176; 80053; 83690; 85025; 87040; 36415; 76376; 96372; 83605; 81003; J1885

== ENCOUNTER 2022-11-28 08:03 | Day surgery (SDC) | payer OTHER ==
[~2022-11-28] VITALS: Ht 172.7 cm; Wt 130.9 kg
[~2022-11-28 08:03] MED LIST changes: +ACET-2634 PO; +DICY10CA13 PO; +LOPE2CAP PO; +PARO-147 PO; -PARO-63 PO
[2022-11-28] MEDS ORDERED: MIDAZOLAM HCL 5 MG/5 ML VIAL ONE ×2 (08:23→10:05)
[2022-11-28] MEDS ORDERED: MEPERIDINE 50 MG/ML VIAL ONE (08:23)
[2022-11-28 16:41] VITALS: BP_SYST 129
== END 2022-11-28 11:50 | disposition home or self-care (01) ==
LOC: SDS 08:03 → SMU 08:04 → SDS 11:50
PROVIDERS: ATTEND Internal Medicine Gastroenterology
DX: Z12.11 Encounter for screening for malignant neoplasm of colon (principal); D12.3 Benign neoplasm of transverse colon; K29.50 Unspecified chronic gastritis without bleeding; K21.9 Gastro-esophageal reflux disease without esophagitis; J44.9 Chronic obstructive pulmonary disease, unspecified; I48.91 Unspecified atrial fibrillation; I11.0 Hypertensive heart disease with heart failure; I50.9 Heart failure, unspecified; F32.A Depression, unspecified; K58.9 Irritable bowel syndrome, unspecified; Z90.710 Acquired absence of both cervix and uterus; Z90.89 Acquired absence of other organs; Z79.899 Other long term (current) drug therapy; Z79.01 Long term (current) use of anticoagulants; Z20.822 Contact with and (suspected) exposure to COVID-19
CPT/HCPCS: 45385; 43239; 87426; 87081; 36415; 88305; 88312; 88313; 99152; 99153; G0378; J2250; J2175

== ENCOUNTER 2023-03-07 11:27 | Emergency (ER) | payer OTHER ==
[~2023-03-07] VITALS: Ht 172.7 cm; Wt 136.1 kg
[2023-03-07 11:38] VITALS: BP_SYST 140
[2023-03-07] MEDS ORDERED: KETOROLAC TROMETHAMINE 60 MG/2 ML VIAL IM ONE (12:30)
[2023-03-07] MEDS ORDERED: HYDROcodone/ACETAMIN 10-325 MG TAB PO ONE (12:30)
[2023-03-07 12:59] LABS: BASOPHILS # (AUTO) 0.1 K/uL (0.0-0.2); BASOPHILS % (AUTO) 0.7 % (0.0-2.0); EOSINOPHILS # (AUTO) 0.2 K/uL (0.0-0.4); EOSINOPHILS % (AUTO) 2.3 % (0.0-4.0); HEMATOCRIT 40.1 % (36-48); HEMOGLOBIN 13.5 g/dL (12.0-16.0); LYMPHOCYTES # (AUTO) 1.9 K/uL (1.0-5.5); LYMPHOCYTES % (AUTO) 22.7 % (20.5-51.5); MEAN CORPUSCULAR HEMOGLOBIN 30 pg (27-31); MEAN CORPUSCULAR HGB CONC 34 % (32-36); MEAN CORPUSCULAR VOLUME 89 fL (79.0-98.0); MONOCYTES # (AUTO) 0.6 K/uL (0.0-1.0); MONOCYTES % (AUTO) 6.6 % (1.7-9.3); NEUTROPHILS # (AUTO) 5.7 K/uL (1.8-7.7); NEUTROPHILS % (AUTO) 67.7 % (40.0-70.0); PLATELET COUNT (AUTO) 219 K/uL (130-430); RED BLOOD CELL COUNT(AUTO) 4.52 MIL/uL (4.2-6.2); RED CELL DISTRIBUTION WIDTH 14.9 % (9.0-15.0); WHITE BLOOD COUNT (AUTO) 8.5 K/uL (4.8-10.8)
[2023-03-07 13:11] LABS: CALCIUM 8.5 mg/dL (8.4-11.0); CREATININE 0.76 mg/dL (0.55-1.30)
[2023-03-07 13:15] LABS: ALBUMIN 3.4 g/dL (3.4-4.8); TOTAL BILIRUBIN 0.4 mg/dL (0.0-1.0)
[2023-03-07] MEDS ORDERED: DICY10CA13 PO (15:56)
[2023-03-07 16:11] VITALS: BP_SYST 140
== END 2023-03-07 16:10 | disposition home or self-care (01) ==
LOC: SED 11:27
DX: R10.32 Left lower quadrant pain (principal); K59.00 Constipation, unspecified; J44.9 Chronic obstructive pulmonary disease, unspecified; K21.9 Gastro-esophageal reflux disease without esophagitis; I11.0 Hypertensive heart disease with heart failure; I50.9 Heart failure, unspecified; Z91.040 Latex allergy status; Z88.2 Allergy status to sulfonamides; Z79.899 Other long term (current) drug therapy
CPT/HCPCS: 99284; 74176; 80053; 83690; 85025; 36415; 76376; 96372; J1885

== ENCOUNTER 2024-06-30 12:25 | Emergency (ER) | payer OTHER ==
[~2024-06-30 12:25] MED LIST changes: +DICY-14 PO; -DICY10CA13 PO
[2024-06-30 12:46] VITALS: BP_SYST 135; PULSE 77; RESP 18; TEMP 97.5; O2SAT 96
[2024-06-30 13:46] LABS: BILIRUBIN,URINE NEGATIVE (NEGATIVE); BLOOD, URINE 3+ (NEGATIVE); CLARITY/URINE TURBID (CLEAR); COLOR,URINE BROWN (YELLOW); GLUCOSE,URINE NEGATIVE (NEGATIVE); KETONES,URINE NEGATIVE (NEGATIVE); LEUKOCYTE ESTERASE ,URINE NEGATIVE (NEGATIVE); NITRITE, URINE NEGATIVE (NEGATIVE); PROTEIN URINE 1+ (NEGATIVE); UROBILINOGEN,URINE 0.2 (0.2-1.0)
[2024-06-30 14:07] LABS: BACTERIA,URINE FEW /HPF (None Seen); RBC,URINE >100 /HPF (0-3); YEAST,URINE Few /HPF (None Seen)
[2024-06-30 14:28] LABS: BASOPHILS # (AUTO) 0.1 K/uL (0.0-0.2); BASOPHILS % (AUTO) 0.6 % (0.0-2.0); EOSINOPHILS # (AUTO) 0.2 K/uL (0.0-0.4); EOSINOPHILS % (AUTO) 1.6 % (0.0-4.0); HEMATOCRIT 44.8 % (36-48); HEMOGLOBIN 14.9 g/dL (12.0-16.0); LYMPHOCYTES # (AUTO) 2.6 K/uL (1.0-5.5); LYMPHOCYTES % (AUTO) 24.7 % (20.5-51.5); MEAN CORPUSCULAR HEMOGLOBIN 31 pg (27-31); MEAN CORPUSCULAR HGB CONC 33 % (32-36); MEAN CORPUSCULAR VOLUME 92 fL (79.0-98.0); MONOCYTES # (AUTO) 0.8 K/uL (0.0-1.0); MONOCYTES % (AUTO) 7.4 % (1.7-9.3); NEUTROPHILS % (AUTO) 65.7 % (40.0-70.0); PLATELET COUNT (AUTO) 238 K/uL (130-430); RED BLOOD CELL COUNT(AUTO) 4.87 MIL/uL (4.2-6.2); RED CELL DISTRIBUTION WIDTH 14.7 % (9.0-15.0); WHITE BLOOD COUNT (AUTO) 10.7 K/uL (4.8-10.8)
[2024-06-30 14:45] LABS: INR 1.1 (0.8-1.2); PROTHROMBIN TIME 11.6 SECS (9.5-12.5)
[2024-06-30 15:20] LABS: ALBUMIN 3.6 g/dL (3.4-4.8); BILIRUBIN,DIRECT 0.2 mg/dL (0.0-0.3); CALCIUM 9.6 mg/dL (8.4-11.0); CREATININE 0.67 mg/dL (0.55-1.30); POTASSIUM 3.4 mmol/L (3.5-5.1); TOTAL BILIRUBIN 0.6 mg/dL (0.0-1.0); TOTAL PROTEIN, SERUM 7.1 g/dL (6.4-8.3)
[2024-06-30] MEDS ORDERED: IBUP-1969 PO (16:09)
[2024-06-30] MEDS ORDERED: HYDR-3927 PO (16:09)
[2024-06-30] MEDS ORDERED: NITR-85 PO (16:09)
[2024-06-30 16:25] VITALS: BP_SYST 122; PULSE 80; RESP 16; TEMP 98; O2SAT 95
[2024-06-30] MEDS: KETOROLAC TROMETHAMINE 60 MG/2 ML VIAL IM ONE (16:28)
== END 2024-06-30 16:25 | disposition home or self-care (01) ==
LOC: SED 12:25
DX: N23 Unspecified renal colic (principal); N93.8 Other specified abnormal uterine and vaginal bleeding; I48.91 Unspecified atrial fibrillation; I11.0 Hypertensive heart disease with heart failure; I50.9 Heart failure, unspecified; F41.9 Anxiety disorder, unspecified; F32.A Depression, unspecified; E11.9 Type 2 diabetes mellitus without complications; J45.909 Unspecified asthma, uncomplicated; Z90.710 Acquired absence of both cervix and uterus; Z90.49 Acquired absence of other specified parts of digestive tract; Z88.2 Allergy status to sulfonamides; Z91.040 Latex allergy status; Z79.01 Long term (current) use of anticoagulants; Z79.899 Other long term (current) drug therapy; Z79.51 Long term (current) use of inhaled steroids
CPT/HCPCS: 99284; 74176; 80076; 80048; 81001; 82150; 83690; 85025; 85610; 85730; 87086; 36415; 96372; 83605; 82397; J1885; 81000; 81015